=== PATIENT | male | born 1985 | race Caucasian/White ===

== ENCOUNTER 2021-08-20 20:44 | Emergency (ER) | payer BC, SELFPAY ==
[2021-08-20 20:50] VITALS: BP 140/104; PULSE 76; RESP 16; TEMP 36.6; O2SAT 96; BMI 27.5
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
[2021-08-20] MEDS: HYDROCODONE-ACETAMIN 5-325 MG 1 TAB 2 TAB PO (21:47)
[2021-08-20 23:39] VITALS: BP 137/104; PULSE 56; RESP 16; O2SAT 99
== END 2021-08-20 23:47 | disposition home or self-care (01) ==
PROVIDERS: Emergency Provider Family Medicine; PCP Nurse Practitioner Family
DX: M25.511 Pain in right shoulder (principal)
CPT/HCPCS: 73030; 99282; 99284; A9270